=== PATIENT | male | born 1990 | race Caucasian/White ===

== ENCOUNTER 2020-07-02 21:01 | Observation (INO) | payer SELFPAY ==
--- NOTE | 2020-07-02 22:18 | ER Document Report ---
ED Medical Screen (RME) - General Chief Complaint: Leg Pain Stated Complaint: LEG PROBLEM Time Seen by Provider: 07/02/20 22:11 - HPI Notes: Patient is a 29-year-old male with no medical history who presents with a abscess to his right lateral thigh that he first noticed 1 week ago. Patient states he did try to pop it initially but was unsuccessful. He states the abscess continues to worsen and grow in size. He reports fever and nausea but denies vomiting. He denies any IV drug use. Physical Exam - Vital signs Vitals: Temp Pulse Resp BP Pulse Ox 98.6 F 102 H 18 146/117 H 95 07/02/20 21:59 07/02/20 21:59 07/02/20 21:59 07/02/20 21:59 07/02/20 21:59 - Extremities Thigh: Tender - Overlying the area on the right lateral thigh. However unable to assess the abscess due to location and patient being seen in triage. Course - Re-evaluation Re-evalutation: I have greeted and performed a rapid initial assessment of this patient. A comprehensive ED assessment and evaluation of the patient, analysis of test results and completion of medical decision making process will be conducted by an additional ED providers. - Vital Signs Vital signs: Temp Pulse Resp BP Pulse Ox 98.6 F 102 H 18 146/117 H 95 07/02/20 21:59 07/02/20 21:59 07/02/20 21:59 07/02/20 21:59 07/02/20 21:59
--- NOTE | 2020-07-02 22:52 | ER Document Report ---
ED Skin Rash/Insect Bite/Abscs - General Chief Complaint: Leg Pain Stated Complaint: LEG PROBLEM Time Seen by Provider: 07/02/20 22:11 Mode of Arrival: Ambulatory Information source: Patient Notes: 29-year-old male presents to the emergency room complaining of possible abscess to his right lateral thigh. Patient states he thought he felt a pimple on his leg about 6 or 7 days ago states he tried to pop it without success and it has been getting larger. Subjective fevers. Has been taking Tylenol without relief. States he took a friend's oxycodone yesterday with some relief. Describes it as a aching and throbbing pain. No known history of MRSA. No previous abscesses. TRAVEL OUTSIDE OF THE [place] IN LAST 30 DAYS: No - Related Data Allergies/Adverse Reactions: No Known Allergies Allergy (Unverified 07/02/20 22:20) Past Medical History - General Information source: Patient - Social History Smoking Status: Current Every Day Smoker Frequency of alcohol use: None Drug Abuse: Marijuana Family History: Reviewed & Not Pertinent Patient has homicidal ideation: No Review of Systems - Review of Systems Constitutional: Fever Cardiovascular: No symptoms reported Respiratory: No symptoms reported Musculoskeletal: Muscle pain Skin: Change in color, Other - Erythema, abscess Neurological/Psychological: No symptoms reported -: Yes All other systems reviewed and negative Physical Exam - Vital signs Vitals: Temp Pulse Resp BP Pulse Ox 98.6 F 102 H 18 146/117 H 95 07/02/20 21:59 07/02/20 21:59 07/02/20 21:59 07/02/20 21:59 07/02/20 21:59 - General General appearance: Appears well, Alert In distress: Moderate - Respiratory Respiratory status: No respiratory distress Chest status: Nontender Breath sounds: Normal Chest palpation: Normal - Cardiovascular Rhythm: Tachycardia Heart sounds: Normal auscultation Murmur: No - Extremities General upper extremity: Normal inspection Thigh: Tender, Ecchymosis - Neurological Neuro grossly intact: Yes Cognition: Normal Orientation: AAOx4 [place] Coma Scale Eye Opening: Spontaneous [place] Coma Scale Verbal: Oriented [place] Coma Scale Motor: Obeys Commands [place] Coma Scale Total: 15 Speech: Normal Motor strength normal: LUE, RUE, LLE, RLE Sensory: Normal - Skin Skin Temperature: Warm Skin Moisture: Dry Skin Color: Normal Skin irregularity: Abscess Location of irregularity: Extremities Character of irregularity: Erythematous Irregularity with: Swelling, Tenderness, Warmth Notes: Right lateral 5 with a 15 x 15 cm area of erythema, 3 cm raised nonfluctuant area that is necrotic appearing in the center of the abscess that is warm and tender to palpation. There is no active discharge or draining noted. Course - Re-evaluation Re-evalutation: 07/03/20 00:46 Patient is resting worsening pain mild fever. Staffed case with my attending Dr. Mario who saw and evaluated the patient. We will add IV Clinda will consult general surgery. 07/03/20 01:34 Patient was seen and evaluated by Dr. Chaudhary from general surgery. Patient will be admitted and taken to the OR tomorrow for debridement of the wound. Patient is agreeable to admission. - Vital Signs Vital signs: Temp Pulse Resp BP Pulse Ox 99.6 F 102 H 18 146/117 H 95 07/03/20 00:43 07/02/20 21:59 07/02/20 21:59 07/02/20 21:59 07/02/20 21:59 - Laboratory Results Result Diagrams: 07/02/20 22:26 07/02/20 22:26 Laboratory Results Interpreted: 07/02/20 22:26 WBC 16.5 H Lymph % (Auto) 10.1 L Absolute Neuts (auto) 13.3 H Seg Neutrophils % 80.5 H Critical Laboratory Results Reviewed: Yes Attending or Supervising Physician who Reviewed Labs: TELMA MARIO IV - consult general surgery add clindamycin - Radiology Results Critical Radiology Results Reviewed: No Critical Results - Consults Dr. Chaudhary Time consulted: 00:50 Reason for consultation: 07/03/20 00:50 right thigh abscess Consulted provider: will come to ER Discharge - Discharge Clinical Impression: Cellulitis of right leg, Abscess of right leg Condition: Stable Disposition: ADMITTED INPATIENT Admitting Provider: Surgicalist Unit Admitted: Surgical Floor
[2020-07-02] MEDS ORDERED: VANCOMYCIN HCL INJ 1000 MG VIAL IV ONE (22:53)
[2020-07-02 23:01] LABS: ABSOLUTE BASOPHILS # (AUTO) 0.1 10^3/uL (0.0-0.2); ABSOLUTE EOSINOPHILS # (AUTO) 0.1 10^3/uL (0.0-0.6); ABSOLUTE LYMPHOCYTES (AUTO) 1.7 10^3/uL (0.5-4.7); ABSOLUTE MONOCYTES (AUTO) 1.3 10^3/uL (0.1-1.4); ABSOLUTE NEUT (AUTO) 13.3 10^3/uL (1.7-8.2); BASOPHILS % (AUTO) 0.8 % (0-2); EOSINOPHILS % (AUTO) 0.9 % (0-6); HEMATOCRIT 42.7 % (37.9-51.0); HEMOGLOBIN 14.4 g/dL (13.5-17.0); LYMPHOCYTES % (AUTO) 10.1 % (13-45); MEAN CORPUSCULAR HEMOGLOBIN 30.3 pg (27.0-33.4); MEAN CORPUSCULAR HGB CONC 33.8 g/dL (32.0-36.0); MEAN CORPUSCULAR VOLUME 90 fl (80-97); MONOCYTES % (AUTO) 7.7 % (3-13); PLATELET COUNT 243 10^3/uL (150-450); RED BLOOD COUNT 4.76 10^6/uL (4.35-5.55); RED CELL DISTRIBUTION WIDTH 12.4 % (11.5-14.0); SEGMENTED NEUTROPHILS % (AUTO) 80.5 % (42-78); TOTAL CELLS COUNTED % (AUTO) 100 %; WHITE BLOOD COUNT 16.5 10^3/uL (4.0-10.5)
[2020-07-02 23:10] LABS: ALBUMIN 4.6 g/dL (3.5-5.0); ALKALINE PHOSPHATASE 61 U/L (38-126); ANION GAP 10 (5-19); ASPARTATE AMINO TRANSFERASE 20 U/L (17-59); BILIRUBIN,DIRECT 0.2 mg/dL (0.0-0.4); BILIRUBIN,TOTAL 0.4 mg/dL (0.2-1.3); BLOOD UREA NITROGEN 14 mg/dL (7-20); CALCIUM 9.5 mg/dL (8.4-10.2); CARBON DIOXIDE 30 mmol/L (22-30); CHLORIDE 100 mmol/L (98-107); GLUCOSE 107 mg/dL (75-110); POTASSIUM 4.2 mmol/L (3.6-5.0); TOTAL PROTEIN 7.8 g/dL (6.3-8.2)
[2020-07-03] MEDS ORDERED: NORMAL SALINE 1000 ML 1,000 ML IV ONE
--- NOTE | 2020-07-03 00:09 | RADIOLOGY REPORT (SQ) ---
EXAM DESCRIPTION: CT RT LOWER EXTREMITY WITH CLINICAL HISTORY: 29 years Male; right leg abscess TECHNIQUE: CT of the right thigh following the administration of IV contrast. Images were reconstructed into the sagittal and coronal plane. No immediate complications. All CT scans at this facility use dose modulation, iterative reconstruction, and/or weight based dosing when appropriate to reduce radiation dose to as low as reasonably achievable. COMPARISON: None. FINDINGS: Skin thickening and edema is present along the posterior lateral aspect of the right thigh in the mid thigh. There appears to be focal skin thickening and there may be fluid in the skin at this level. Contrast bolus is suboptimal in this area is not clearly enhanced. This area measures approximately 4.9 x 1.9 x 4.7 cm. This process is confined to the subcutaneous fat and the skin. A small amount of fluid is seen along the fascia of the lateral aspect of the thigh but the underlying muscles are intact and there is no abscess or loculated fluid collections within the muscles of the thigh. The femur is normal. No periostitis. No acute fracture. Incidental note is made of an accessory ossicle adjacent to the lateral aspect of the patella. Visualized portion of the pelvic contents are unremarkable. No foreign bodies seen in the soft tissues. IMPRESSION: Soft tissue edema, skin thickening and focal area of inflammation in the soft tissues of the right posterior lateral thigh. There may be a small amount of fluid in this area. It is difficult to fully visualize. No evidence of involvement of the muscles. Normal-appearing femur. No foreign body.
[2020-07-03] MEDS ORDERED: MORPHINE SULFATE 10 MG/ML INJ IV ONE ×2 (00:33→01:54)
[2020-07-03] MEDS ORDERED: CLINDAMYCIN 900 MG/D5W RTU 900 MG/50 ML RTUPB IV ONE (00:46)
[2020-07-03] MEDS ORDERED: ACETAMINOPHEN 325 MG TABLET PO ONE (00:47)
[2020-07-03] MEDS ORDERED: DIPH/PERTUSS(ACELL)/TETANUS VAC/PF 0.5 ML SYR (>=10YO) IM ONE (01:28)
[2020-07-03] MEDS ORDERED: ONDANSETRON HCL INJ/PF 4 MG/2 ML SDV IV PRN ×2 (01:33→16:11)
--- NOTE | 2020-07-03 01:33 | PDOC H&P ---
History of Present Illness Patient complains of: Right posterior thigh redness and pain History of Present Illness: ROE WATERS is a 29 year old male, homeless, living out of his car, who presents to the emergency room with a 5-day complaint of a pimple on the right posterior thigh which became larger than the past 2 to 3 days with increased pain, redness, and swelling of the skin. The area also presents with a necrotic center. Social History Smoking Status: Current Every Day Smoker Family History Family History: Reviewed & Not Pertinent Parental Family History Reviewed: No Children Family History Reviewed: No Sibling(s) Family History Reviewed.: No Medication/Allergy Allergies/Adverse Reactions: No Known Allergies Allergy (Unverified 07/02/20 22:20) Physical Exam Vital Signs: Temp Pulse Resp BP Pulse Ox 99.6 F 102 H 18 146/117 H 95 07/03/20 00:43 07/02/20 21:59 07/02/20 21:59 07/02/20 21:59 07/02/20 21:59 Intake & Output 07/01/20 07/02/20 07/03/20 06:59 06:59 06:59 Intake Total 250 Balance 250 Weight 71.9 kg General appearance: PRESENT: no acute distress, thin Head exam: PRESENT: atraumatic, normocephalic Eye exam: PRESENT: EOMI Mouth exam: PRESENT: moist, neck supple Neck exam: PRESENT: full ROM Respiratory exam: PRESENT: clear to auscultation michael Cardiovascular exam: PRESENT: RRR GI/Abdominal exam: PRESENT: soft Rectal exam: PRESENT: deferred Extremities exam: PRESENT: full ROM Musculoskeletal exam: PRESENT: full ROM Neurological exam: PRESENT: alert, awake, oriented to time, CN II-XII grossly intact Skin exam: PRESENT: other - Right thigh = presence of a large area of erythema with swelling and tenderness in the posterolateral aspect of her mid thigh measuring approximately 10 cm with a 5 cm central necrotic area Results Laboratory Results: 07/02/20 22:26 07/02/20 22:26 07/02/20 07/02/20 07/02/20 22:26 22:26 23:07 WBC 16.5 H RBC 4.76 Hgb 14.4 Hct 42.7 MCV 90 MCH 30.3 MCHC 33.8 RDW 12.4 Plt Count 243 Seg Neutrophils % 80.5 H Sodium 139.7 Potassium 4.2 Chloride 100 Carbon Dioxide 30 Anion Gap 10 BUN 14 Creatinine 1.10 Est GFR ( Amer) > 60 Glucose 107 Lactic Acid 1.7 Calcium 9.5 Total Bilirubin 0.4 AST 20 Alkaline Phosphatase 61 Total Protein 7.8 Albumin 4.6 Impressions: Lower Extremity CT 07/02/20 23:11 IMPRESSION: Soft tissue edema, skin thickening and focal area of inflammation in the soft tissues of the right posterior lateral thigh. There may be a small amount of fluid in this area. It is difficult to fully visualize. No evidence of involvement of the muscles. Normal-appearing femur. No foreign body. Assessment & Plan - Diagnosis (1) Cellulitis of right thigh Is this a current diagnosis for this admission?: Yes - Time Anticipated Discharge Disposition: Home, Self Care Anticipated Discharge Timeframe: when ready - Plan Summary Plan Summary: Assessment: Healthy 29-year-old male with an area of erythema edema and pain of the right posterior mid thigh On physical exam, a large area of erythema with swelling and tenderness in the posterolateral aspect of her mid thigh measuring approximately 10 cm with a 5 cm central necrotic area is identified Leukocytosis 16.5 CT scan right thigh = presence of early cellulitis small amounts of fluid in the right posterior lateral mid thigh The lesion my identify as a brown recluse spider bite because of the erythema with the central necrosis Plan: Admission N.p.o. IV fluids IV antibiotics vancomycin and Rocephin Incisional drainage of area of the closed right posterior thigh Tetanus toxoid 1 dose
[2020-07-03] MEDS: CEFTRIAXONE 2 GM/D5W RTU 2 GM/50 ML RTUPB IV SCH ×3 (03:29→21:51)
[2020-07-03] MEDS: FAMOTIDINE INJ/PF 20 MG/2 ML SDV IV SCH ×3 (03:30→21:51)
[2020-07-03] MEDS: NORMAL SALINE 1000 ML 1,000 ML IV PRN (05:00)
[2020-07-03] MEDS: ACETAMINOPHEN 1,000 MG/100 ML RTUPB IV SCH ×4 (06:31→21:52)
[2020-07-03] MEDS: CLINDAMYCIN 900 MG/D5W RTU 900 MG/50 ML RTUPB IV SCH ×2 (11:14→17:58)
[2020-07-03] MEDS ORDERED: MIDAZOLAM 2 MG/2 ML INJ ONE (14:08)
[2020-07-03] MEDS ORDERED: DEXAMETHASONE SOD PHOSPHATE INJ 4 MG/1 ML VIAL ONE (14:08)
[2020-07-03] MEDS ORDERED: ONDANSETRON HCL INJ/PF 4 MG/2 ML SDV ONE (14:08)
[2020-07-03] MEDS ORDERED: PROPOFOL INJ 200 MG/20 ML VIAL IV ONE (14:08)
[2020-07-03] MEDS ORDERED: FENTANYL CITRATE INJ/PF 100 MCG/2 ML AMPUL ONE (14:08)
[2020-07-03] MEDS ORDERED: BUPIVACAINE HCL 0.25 % INJ/PF (2.5 MG/1 ML) 30 ML VIAL ONE (14:25)
[2020-07-03] MEDS ORDERED: LIDOCAINE 0.5% INJ-PF (5 MG/ML) 50 ML SDV ONE (14:25)
[2020-07-03] MEDS ORDERED: OXYCODONE-ACETAMINOPHEN 5-325 MG TABLET PO PRN ×2 (16:05)
[2020-07-03] MEDS ORDERED: MORPHINE SULFATE 10 MG/ML INJ IV PRN (16:05)
[2020-07-03] MEDS ORDERED: MEPERIDINE HCL/PF INJ 25 MG/1 ML DISP.SYRIN IV PRN (16:05)
[2020-07-03] MEDS ORDERED: DIPHENHYDRAMINE HCL 50 MG/ML VIAL IV PRN (16:05)
[2020-07-03] MEDS ORDERED: FENTANYL CITRATE INJ/PF 100 MCG/2 ML AMPUL IV PRN ×3 (16:05)
[2020-07-03] MEDS ORDERED: KETOROLAC TROMETHAMINE INJ/PF 30 MG/1 ML SDV IV PRN (16:11)
--- NOTE | 2020-07-03 16:17 | Operative Report ---
Operative Report DATE OF SURGERY: 07/03/20 PREOPERATIVE DIAGNOSIS: Deep soft tissue infection thigh consistent with MRSA a bscess POSTOPERATIVE DIAGNOSIS: Same OPERATION: Excisional debridement of right thigh MRSA abscess including skin, and subcutaneous tissue SURGEON: ROE QUESADA ANESTHESIA: GA TISSUE REMOVED OR ALTERED: Necrotic skin and subcutaneous tissue COMPLICATIONS: None ESTIMATED BLOOD LOSS: Scant INTRAOPERATIVE FINDINGS: See below PROCEDURE: The patient was taken to the main operating room where LMA general anesthesia was induced. The patient's right thigh was isolated, prepped and draped in sterile fashion. Surgical plan surgical time were conducted. The right thigh was difficult for a large 4 and half to 5 cm completely necrotic full-thickness skin eschar, surrounded by a 2 to 3 cm peripheral rim of edematous skin. The full-thickness necrotic eschar was completely excised using a #10 blade. The deep subcutaneous tissue was infected with woody fibrotic tissue consistent with MRSA. Wound cultures obtained for Gram stain, and sensitivity. Using the left side of a [employer] clamp, all subcutaneous fibrotic cavities were broken up. Infection did not extend beyond the fascia. Wound was irrigated with saline. I felt that the operation was complete. There was no need for counterincision. Wound packed with Kerlix gauze moistened with saline, then dry 4 x 4's and dry Curlex. Patient tolerated the procedure well, extubated, taken recovery in stable condit ion.
[2020-07-03] MEDS ORDERED: OXYCODONE-ACETAMINOPHEN 5-325 MG TABLET ONE (17:11)
[2020-07-03] MEDS ORDERED: DOCUSATE SODIUM 100 MG CAPSULE PO SCH (18:00)
[2020-07-03] MEDS ORDERED: ACETAMINOPHEN INJ/PF 1000 MG/100 ML SDV IV SCH (18:00)
[2020-07-04] MEDS: CLINDAMYCIN 900 MG/D5W RTU 900 MG/50 ML RTUPB IV SCH (03:26)
[2020-07-04] MEDS: ACETAMINOPHEN 1,000 MG/100 ML RTUPB IV SCH (03:26)
[2020-07-04] MEDS: NORMAL SALINE 1000 ML 1,000 ML IV PRN (06:02)
--- NOTE | 2020-07-04 09:13 | PDOC PROGRESS REPORT ---
Subjective Date:: 07/04/20 Subjective:: No complaints Reason For Visit: RIGHT THIGH CELLULITIS Physical Exam Vital Signs: Temp Pulse Resp BP Pulse Ox 98.1 F 55 L 17 117/56 L 97 07/04/20 03:28 07/04/20 07:00 07/04/20 03:28 07/04/20 03:28 07/04/20 03:28 Intake & Output 07/03/20 07/04/20 07/05/20 06:59 06:59 06:59 Intake Total 1605 1361 Output Total 20 Balance 1605 1341 Weight 71.9 kg 75.4 kg General appearance: PRESENT: no acute distress Extremities exam: PRESENT: other - Right thigh = abscess site clean, minimal edema, minimal erythema, slightly indurated, no odor, no drainage Results Laboratory Results: 07/02/20 22:26 07/02/20 22:26 Impressions: Lower Extremity CT 07/02/20 23:11 IMPRESSION: Soft tissue edema, skin thickening and focal area of inflammation in the soft tissues of the right posterior lateral thigh. There may be a small amount of fluid in this area. It is difficult to fully visualize. No evidence of involvement of the muscles. Normal-appearing femur. No foreign body. Assessment & Plan - Diagnosis (1) Cellulitis of right thigh Is this a current diagnosis for this admission?: Yes - Time Anticipated Discharge Disposition: Home, Self Care Anticipated Discharge Timeframe: within 24 hours - Plan Summary Plan Summary: Assessment: Postoperative day #1 following incision and drainage of right lateral thigh abscess Surgical site clean, granulating, no drainage, minimal edema and erythema, slight tenderness, Plan: Discharge home today Bactrim double strength 1 tab by mouth twice a day for 14 days Clindamycin 300 mg by mouth 3 times a day for 14 days Normal saline wet-to-dry dressing changes daily Shower daily Follow-up in the office in 2 weeks
--- NOTE | 2020-07-04 09:21 | PDOC DISCHARGE SUMMARY ---
General - Admit/Disc Date/PCP Admission Date/Primary Care Provider: 07/03/20 01:48 Discharge Date: 07/04/20 - Discharge Diagnosis Final Diagnosis: Abscess right thigh - Assessment Summary: The patient is a healthy 29-year-old male who presented to the emergency room on July 03, 2019 when with a complaint of redness, pain drainage and black discoloration of the large area of the right lateral thigh which revealed to be an abscess. The patient was taken to surgery on July 04 with wide debridement of the area and packing. On July 05, 2020, the patient had no complaints, external signs are stable, the surgical site appears to be well- healing granulated with minimal discomfort, minimal erythema and edema, no drainage the patient was discharged home on July 05, 2020. A follow-up appointment in the office in 2 weeks, clindamycin and Bactrim antibiotics for 2 weeks, normal saline wet-to-dry dressing changes twice a day. - Additional Information Resuscitation Status: Full Code Discharge Diet: Regular Discharge Activity: Activity As Tolerated, No tub bath - Patient can shower daily, remove all bandages, water and soap can run over the wound Prescriptions: Sulfamethoxazole/Trimethoprim [Bactrim Ds Tablet] 1 each PO BID #30 tablet Clindamycin HCl 300 mg PO TID #42 capsule Home Medications: Clindamycin HCl 300 mg PO TID #42 capsule 07/04/20 Sulfamethoxazole/Trimethoprim [Bactrim Ds Tablet] 1 each PO BID #30 tablet 07/04/20 Additional Information: Discharge home today Bactrim double strength 1 tab by mouth twice a day for 14 days Clindamycin 300 mg by mouth 3 times a day for 14 days Normal saline wet-to-dry dressing changes daily Shower daily Follow-up in the office in 2 weeks Tylenol and or Motrin [id number] as needed for pain History of Present Illiness History of Present Illness: ROE WATERS is a 29 year old male, homeless, living out of his car, who presents to the emergency room with a 5-day complaint of a pimple on the right posterior thigh which became larger than the past 2 to 3 days with increased pain, redness, and swelling of the skin. The area also presents with a necrotic center. Physical Exam Vital Signs: Temp Pulse Resp BP Pulse Ox 98.1 F 55 L 17 117/56 L 97 07/04/20 03:28 07/04/20 07:00 07/04/20 03:28 07/04/20 03:28 07/04/20 03:28 Intake & Output 07/03/20 07/04/20 07/05/20 06:59 06:59 06:59 Intake Total 1605 1361 Output Total 20 Balance 1605 1341 Weight 71.9 kg 75.4 kg Results Laboratory Results: WBC 16.5 10^3/uL (4.0-10.5) H 07/02/20 22:26 RBC 4.76 10^6/uL (4.35-5.55) 07/02/20 22:26 Hgb 14.4 g/dL (13.5-17.0) 07/02/20 22: Hct 42.7 % (37.9-51.0) 07/02/20 22: MCV 90 fl (80-97) 07/02/20 22:26 MCH 30.3 pg (27.0-33.4) 07/02/20 22: MCHC 33.8 g/dL (32.0-36.0) 07/02/20 22: RDW 12.4 % (11.5-14.0) 07/02/20 22:26 Plt Count 243 10^3/uL (150-450) 07/02/20 22:26 Lymph % (Auto) 10.1 % (13-45) L 07/02/20 22: [place] % (Auto) 7.7 % (3-13) 07/02/20 22: Eos % (Auto) 0.9 % (0-6) 07/02/20 22: Baso % (Auto) 0.8 % (0-2) 07/02/20 22: Absolute Neuts (auto) 13.3 10^3/uL (1.7-8.2) H 07/02/20 22: Absolute Lymphs (auto) 1.7 10^3/uL (0.5-4.7) 07/02/20 22: Absolute Monos (auto) 1.3 10^3/uL (0.1-1.4) 07/02/20 22:26 Absolute Eos (auto) 0.1 10^3/uL (0.0-0.6) 07/02/20 22:26 Absolute Basos (auto) 0.1 10^3/uL (0.0-0.2) 07/02/20 22:26 Seg Neutrophils % 80.5 % (42-78) H 07/02/20 22:26 Sodium 139.7 mmol/L (137-145) 07/02/20 22:26 Potassium 4.2 mmol/L (3.6-5.0) 07/02/20 22: Chloride 100 mmol/L (98-107) 07/02/20 22: Carbon Dioxide 30 mmol/L (22-30) 07/02/20 22:26 Anion Gap 10 (5-19) 07/02/20 22:26 BUN 14 mg/dL (7-20) 07/02/20 22: Creatinine 1.10 mg/dL (0.52-1.25) 07/02/20 22:26 Est GFR ( Amer) > 60 (>60) 07/02/20 22:26 Est GFR (MDRD) Non-Af > 60 (>60) 07/02/20 22:26 Glucose 107 mg/dL (75-110) 07/02/20 22: POC Glucose 97 mg/dL (70-110) 07/03/20 11:42 Lactic Acid 1.7 mmol/L (0.7-2.1) 07/02/20 23:07 Calcium 9.5 mg/dL (8.4-10.2) 07/02/20 22:26 Total Bilirubin 0.4 mg/dL (0.2-1.3) 07/02/20 22: Direct Bilirubin 0.2 mg/dL (0.0-0.4) 07/02/20 22:26 Neonat Total Bilirubin Not Reportable 07/02/20 22:26 Neonat Direct Bilirubin Not Reportable 07/02/20 22:26 Neonat Indirect Bili Not Reportable 07/02/20 22:26 AST 20 U/L (17-59) 07/02/20 22: ALT 13 U/L (<50) 07/02/20 22:26 Alkaline Phosphatase 61 U/L (38-126) 07/02/20 22:26 Total Protein 7.8 g/dL (6.3-8.2) 07/02/20 22:26 Albumin 4.6 g/dL (3.5-5.0) 07/02/20 22:26 Influenza A (RT-PCR) NEGATIVE (NEGATIVE) 07/03/20 01:30 Influenza B (RT-PCR) NEGATIVE (NEGATIVE) 07/03/20 01:30 RSV (RT-PCR) NEGATIVE (NEGATIVE) 07/03/20 01:30 SARS-CoV-2 Rap RNA(RT-PCR) NEGATIVE (NEGATIVE) 07/03/20 01:30 Impressions: Lower Extremity CT 07/02/20 23:11 IMPRESSION: Soft tissue edema, skin thickening and focal area of inflammation in the soft tissues of the right posterior lateral thigh. There may be a small amount of fluid in this area. It is difficult to fully visualize. No evidence of involvement of the muscles. Normal-appearing femur. No foreign body.
[2020-07-04 10:49] VITALS: BP 116/72
== END 2020-07-04 11:30 | disposition home or self-care (01) ==
LOC: ER 21:01 → EH 07-03 01:48 → INTOOBSV 07-03 01:48 → 5 07-03 04:48
PROVIDERS: ADMIT Surgery; ATTEND Surgery
DX: L02.415 Cutaneous abscess of right lower limb (principal); B95.62 Methicillin resistant Staphylococcus aureus infection as the cause of diseases classified elsewhere; I96 Gangrene, not elsewhere classified; Z01.812 Encounter for preprocedural laboratory examination; Z20.822 Contact with and (suspected) exposure to COVID-19; F12.10 Cannabis abuse, uncomplicated; Z59.0 Homelessness; F17.210 Nicotine dependence, cigarettes, uncomplicated; R00.0 Tachycardia, unspecified; Z23 Encounter for immunization; Z79.899 Other long term (current) drug therapy
CPT/HCPCS: 11042; 99285; 96361; 96375; 96365; 36415; 87040 ×2; 87070 ×2; 87205 ×2; 82962; 83605; 85025; 0241U ×4; 87075; 87077; 80053; 87186; 73701; 90715; 00300; 90471; G0378 ×3; J2250; J1100; J3010; J3490 ×2; J2270; J2405; J7030 ×2; J2704; J3370; S0028; J0131 ×2; J0696; C9803; G0008